=== PATIENT | female | born 1970 | race African-American/Black ===

== ENCOUNTER 2016-07-31 22:35 | Emergency (ER) | payer MEDICAID, OTHER ==
[~2016-07-31] VITALS: Ht 170.2 cm; Wt 78.0 kg
[2016-08-01 01:45] VITALS: BP 113/65
[2016-08-01] MEDS ORDERED: LIDOCAINE HCL 1% 20ML VIAL (Pyxis) INJ ONE (02:35)
[2016-08-01] MEDS ORDERED: MORPHINE SULFATE 4 MG/ML CPJ (NOT FOR IM USE) IV ONE (02:36)
== END 2016-08-01 04:15 | disposition home or self-care (01) ==
LOC: ER 22:35
DX: L02.31 Cutaneous abscess of buttock (principal); F17.200 Nicotine dependence, unspecified, uncomplicated
CPT/HCPCS: 10060; 99283; J2270; J3490; X7700; Z7610

== ENCOUNTER 2016-08-03 16:05 | Emergency (ER) | payer OTHER ==
[~2016-08-03] VITALS: Ht 170.2 cm; Wt 79.0 kg
[2016-08-03 21:57] VITALS: BP 124/78
== END 2016-08-03 21:58 | disposition home or self-care (01) ==
LOC: ER 16:05
DX: Z48.01 Encounter for change or removal of surgical wound dressing (principal)
CPT/HCPCS: 99283